=== PATIENT | female | born 1980 | race Caucasian/White ===

== ENCOUNTER 2021-06-06 20:12 | Emergency (ER) | payer OTHER ==
[~2021-06-06] VITALS: Ht 170.2 cm; Wt 52.2 kg
[~2021-06-06 20:12] MED LIST: ZOFRAN ODT4 MG PO
[2021-06-06 21:01] LABS: ABSOLUTE NEUTROPHILS 6.1 thou/uL (1.4-8.2); BASOPHILS 0.6 % (0.0-2.0); EOSINOPHILS 0.3 % (0.0-3.0); HEMATOCRIT 40.1 % (37.0-47.0); HEMOGLOBIN 13.1 gm/dL (12.0-15.0); LYMPHOCYTES 11.4 % (24.0-44.0); MCH 28.7 pg (26.0-34.0); MCHC 32.6 g/dL (28.0-37.0); MONOCYTES 5.2 % (1.0-8.0); PLATELET COUNT 243 thou/uL (150-400); POLYS 82.5 % (36.0-66.0); RBC 4.56 mil/uL (4.20-5.00); RDW 12.7 % (10.5-14.5); WBC 7.4 thou/uL (4.0-11.0)
[2021-06-06 21:10] LABS: CALCIUM 8.5 mg/dL (8.5-10.1); CREATININE 0.8 mg/dL (0.6-1.0); POTASSIUM 3.4 mmol/L (3.5-5.1)
[2021-06-06 21:19] LABS: ALBUMIN 4.1 g/dL (3.4-5.0); TOTAL BILIRUBIN 0.7 mg/dL (0.2-1.0); TOTAL PROTEIN 7.9 g/dL (6.4-8.2)
[2021-06-06 21:48] LABS: URINE BILIRUBIN NEGATIVE (Negative); URINE BLOOD NEGATIVE (Negative); URINE CLARITY CLEAR; URINE COLOR YELLOW; URINE GLUCOSE-RANDOM* NEGATIVE (Negative); URINE KETONES 3+ (Negative); URINE LEUKOCYTES-REFLEX TRACE (Negative); URINE NITRITE-REFLEX NEGATIVE (Negative); URINE PROTEIN (DIPSTICK) NEGATIVE (Negative); URINE SPECIFIC GRAVITY 1.025 (1.005-1.035)
[2021-06-06 23:18] VITALS: BP 122/72
--- NOTE | 2021-06-10 07:13 | EKG ---
[place] [address] [facility] [place] [address] ELECTROCARDIOGRAM REPORT Name: ROBYEBONIE OSWALDOVIC Room #: DEP [facility]ITALJose Francisco#: [id number] Admission: 06/06/21 Attend Phys: Discharge: 06/06/21 Date of : 82 Report #: [id number] [facility] ED Test Date: 2021-06-06 Test Time: 20:44:55 Pat Name: EBONIE CA Department: Room: Gender: F [employer] Attendant: [facility] : 1980 Requested By: Maureen Gentile Order Number: [id number] MD: Ilir Thompson Measurements Intervals Bryant Rate: 92 P: 78 LA: 148 QRS: 61 QRSD: 90 T: 81 QT: 383 QTc: 474 Interpretive Statements Sinus rhythm Probable left atrial enlargement Nonspecific T abnrm, anterolateral leads No previous ECG available for comparison Electronically Signed On 06-10-2021 7:12:55 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
== END 2021-06-06 23:00 | disposition home or self-care (01) ==
LOC: ER 20:12
PROVIDERS: Physician Assistant
DX: R00.2 Palpitations (principal); Z20.822 Contact with and (suspected) exposure to COVID-19; E86.0 Dehydration; R42 Dizziness and giddiness; E87.6 Hypokalemia; E03.9 Hypothyroidism, unspecified; Z79.899 Other long term (current) drug therapy; Z88.8 Allergy status to other drugs, medicaments and biological substances